=== PATIENT | male | born 1940 | race Caucasian/White ===

== ENCOUNTER 2024-01-17 18:04 | Emergency (ER) | payer OTHER ==
[~2024-01-17] VITALS: Ht 182.9 cm; Wt 83.9 kg
[2024-01-17 18:42] VITALS: BP 161/82; PULSE 70; RESP 16; TEMP 98.5; O2SAT 97
[2024-01-17 18:55] LABS: BILIRUBIN,URINE NEGATIVE (NEGATIVE); LEUKOCYTE ESTERASE ,URINE 3+ (NEGATIVE); NITRATE,URINE NEGATIVE (NEGATIVE); PH,URINE 5.5 (4.5-8.0); UROBILINOGEN,URINE 0.2 E.U./dL (0.2)
[2024-01-17 18:59] LABS: APPEARANCE,URINE TURBID; UA COLOR YELLOW
[2024-01-17 19:02] LABS: YEAST,URINE MANY (NONE SEEN)
[2024-01-17] MEDS ORDERED: ROCEPHIN 1,000 MG in NS 100ML 100 ML IV STA (19:21)
[2024-01-17 19:34] LABS: BASOPHIL % 0.6 % (0.0-0.2); EOSINOPHIL # 0.1 10^3/uL (0.0-0.2); EOSINOPHIL % 2.2 % (0.0-5.0); LYMPHOCYTES # 0.87 10^3/uL1 (1.0-4.8); LYMPHOCYTES % 27.7 % (24.0-44.0); MEAN CORP HGB 29.9 pg (26-34); MEAN CORP HGB CONCENTRATION 33.3 g/dL (33-36.5); MEAN CORP VOLUME 89.8 fL (78-100); MONOCYTES # 0.5 10^3/uL (0.3-0.8); MONOCYTES % 15.6 % (5.0-12.0); NEUTROPHIL # 1.7 10^3/uL (1.8-7.7); NEUTROPHILS % 53.9 % (41.0-85.0); PLATELET COUNT 141 10^3/uL (150-400); RED BLOOD CELL 5.01 10^6/uL (4.50-5.90); RED CELL DISTRIBUTION WIDTH 13.7 % (11.5-14.5); WHITE BLOOD CELL 3.1 10^3/uL (4.5-11.0)
[2024-01-17 19:35] LABS: +ADD MANUAL DIFF(NO CHRG) NO
[2024-01-17] MEDS ORDERED: ROCEPHIN ONE (19:36)
[2024-01-17] MEDS: ROCEPHIN IM STA (19:39)
[2024-01-17 19:45] LABS: ANION GAP 12.7; BUN/CREATININE RATIO 12.01 (10.0-20.0); CALCIUM 9.5 mg/dL (8.4-10.5); CARBON DIOXIDE 23.2 mmol/L (20.0-32); CREATININE SERUM 2.83 mg/dL (0.59-1.40); EST GFR, NON-AA 21.6 (>/=60); POTASSIUM 4.9 mmol/L (3.6-5.2)
[2024-01-17 20:49] VITALS: BP 168/80; PULSE 82; RESP 16; TEMP 98.5; O2SAT 97
== END 2024-01-17 21:00 | disposition home or self-care (01) ==
LOC: ER 18:04
DX: N39.0 Urinary tract infection, site not specified (principal); N18.9 Chronic kidney disease, unspecified; E78.00 Pure hypercholesterolemia, unspecified; Z87.440 Personal history of urinary (tract) infections; Z90.49 Acquired absence of other specified parts of digestive tract
CPT/HCPCS: 99283; 96372; 87086; 87106; 85025; 36415; 80048; 81001; J0696 ×2